=== PATIENT | female | born 1970 | race Caucasian/White ===

== ENCOUNTER 2016-09-30 21:42 | Emergency (ER) | payer OTHER ==
[~2016-09-30] VITALS: Ht 165.1 cm; Wt 85.0 kg
[~2016-09-30 21:42] MED LIST: AUGMENTIN875 MG PO; DIFLUCAN150 MG PO; DIOVAN80 MG PO; GABAPENTIN300 MG PO; METOPROLOL TART25 MG PO; NAPROSYN500 MG PO; NORCO 5/3251 TABLET PO; PERCOCET 5/31 TABLET PO; SKELAXIN800 MG PO; STOOL SOFTENER250 MG PO; VALSARTAN160 MG PO
[2016-09-30 22:53] LABS: ADD MIUA? YES; BILIRUBIN NEGATIVE; BLOOD LARGE; COLOR YELLOW ((YELLOW)); GLUCOSE (STRIP) NEGATIVE; KETONES NEGATIVE; LEUKOCYTES NEGATIVE; NITRITE NEGATIVE; PROTEIN (STRIP) NEGATIVE; SPECIFIC GRAVITY 1.013 (1.000-1.030); UROBILINOGEN 0.2 MG/DL (0.2-1.0)
[2016-09-30 23:04] LABS: ADD MEDTOX COMMENT Y; AMPHETAMINE PRESUMPTIVE POSITIVE (500 ng/mL); BARBITURATES NEGATIVE (200 ng/mL); BENZODIAZEPINES NEGATIVE (150 ng/mL); COCAINE NEGATIVE (150 ng/mL); INTERNAL CONTROLS VALID? YES; METHADONE NEGATIVE (200 ng/mL); METHAMPHETAMINE NEGATIVE (500 ng/mL); OPIATES (MORPHINE) NEGATIVE (100 ng/mL); OXYCODONE PRESUMPTIVE POSITIVE (100 ng/mL); PHENCYCLIDINE NEGATIVE (25 ng/mL); PROPOXYPHENE NEGATIVE (300 ng/mL); THC CANNABINOIDS NEGATIVE (50 ng/mL); TRICYCLIC ANTIDEPRESSANTS PRESUMPTIVE POSITIVE (300 ng/mL)
[2016-09-30 23:10] LABS: EPITHELIAL CELLS RARE; MUCUS NONE SEEN; WHITE BLOOD CELLS RARE /HPF (0-5)
[2016-09-30 23:11] LABS: BACTERIA NONE SEEN; CASTS NONE SEEN /LPF; CRYSTALS NONE SEEN; UCUL ADDED? NO
[2016-10-01] MEDS ORDERED: FLEXERIL5 MG PO (00:55)
[2016-10-01] MEDS ORDERED: MEDROL DOSEPAK4 MG PO (00:55)
[2016-10-01 01:10] VITALS: BP 189/82
== END 2016-10-01 01:14 | disposition home or self-care (01) ==
LOC: EME 21:42 → EXP 21:42
PROVIDERS: Physician Assistant
DX: M54.32 Sciatica, left side (principal); S40.011A Contusion of right shoulder, initial encounter; W01.0XXA Fall on same level from slipping, tripping and stumbling without subsequent striking against object, initial encounter
CPT/HCPCS: 73020; 73030; 81003; 84999; 99281; 99284

== ENCOUNTER 2017-01-29 16:14 | Emergency (ER) | payer OTHER ==
[~2017-01-29] VITALS: Ht 2651.8 cm; Wt 84.7 kg
[~2017-01-29 16:14] MED LIST changes: +FLEXERIL5 MG PO; +MEDROL DOSEPAK4 MG PO
[2017-01-29 16:58] LABS: EOSINOPHIL (%) 2.6 % (0-5); EOSINOPHIL COUNT 0.1 K/uL (0-0.3); HEMATOCRIT 34.2 % (36.0-46.0); IMMATURE GRANULOCYTE (%) 0.6 % (0.0-0.7); LYMPHOCYTE COUNT 1.5 K/uL (1.0-2.8); MCH 28.6 PG (29.0-34.0); MCHC 33.3 G/DL (30.0-36.0); MCV 85.9 FL (83-99); MEAN PLAT.VOLUME 8.4 uM^3 (9.5-12.4); MONOCYTE (%) 6.4 % (3-12); MONOCYTE COUNT 0.3 K/uL (0-0.8); PLATELET COUNT 276 K/uL (156-360); RBC DIS.WIDTH-CV 12.9 % (11.8-14.6); RBC DIS.WIDTH-SD 40.1 % (39-53); RED BLOOD COUNT 3.98 M/uL (3.80-5.20)
[2017-01-29 17:13] LABS: CHLORIDE 103 mEq/L (99-109); POTASSIUM 4.4 mEq/L (3.7-5.4); SODIUM 139 mEq/L (136-147)
[2017-01-29 17:15] LABS: GLUCOSE 87 mg/dL (70-99)
[2017-01-29 17:17] LABS: ANION GAP 9 MEQ/L (2-14)
[2017-01-29 17:18] LABS: SERUM ETHYL ALCOHOL < 10 mg/dL
[2017-01-29 17:19] LABS: GFR ESTIMATE (CALCULATED) > 59 mL/min/
[2017-01-29 17:20] LABS: UREA NITROGEN (BUN) 12 mg/dL (9-23)
[2017-01-29 17:24] LABS: ADD MIUA? YES; BILIRUBIN NEGATIVE; BLOOD LARGE; COLOR AMBER ((YELLOW)); GLUCOSE (STRIP) NEGATIVE; KETONES NEGATIVE; LEUKOCYTES SMALL; NITRITE POSITIVE; PROTEIN (STRIP) 100; SPECIFIC GRAVITY 1.017 (1.000-1.030); UROBILINOGEN 0.2 MG/DL (0.2-1.0)
[2017-01-29 17:50] LABS: BACTERIA 2+ /HPF; EPITHELIAL CELLS 2+ /HPF; MUCUS 1+ /LPF; RED BLOOD CELLS TNTC /HPF (0-5); UCUL ADDED? YES; WHITE BLOOD CELLS 40-50 /HPF (0-5)
[2017-01-29 17:51] LABS: AMPHETAMINE NEGATIVE (500 ng/mL); BARBITURATES NEGATIVE (200 ng/mL); BENZODIAZEPINES NEGATIVE (150 ng/mL); COCAINE NEGATIVE (150 ng/mL); INTERNAL CONTROLS VALID? YES; METHADONE NEGATIVE (200 ng/mL); METHAMPHETAMINE NEGATIVE (500 ng/mL); OPIATES (MORPHINE) NEGATIVE (100 ng/mL); OXYCODONE PRESUMPTIVE POSITIVE (100 ng/mL); PHENCYCLIDINE NEGATIVE (25 ng/mL); PROPOXYPHENE NEGATIVE (300 ng/mL); THC CANNABINOIDS NEGATIVE (50 ng/mL); TRICYCLIC ANTIDEPRESSANTS NEGATIVE (300 ng/mL)
[2017-01-29] MEDS ORDERED: BACTRIM,SEPT1 TABLET PO (18:21)
[2017-01-29 18:32] VITALS: BP 168/92
== END 2017-01-29 18:33 | disposition home or self-care (01) ==
LOC: EME → EDBD 16:14 → EME 16:14
PROVIDERS: Emergency Medicine
DX: R56.9 Unspecified convulsions (principal); N39.0 Urinary tract infection, site not specified; Z98.84 Bariatric surgery status
CPT/HCPCS: 70450; 80048; 81003; 85025; 87077; 87086; 87186; 93005; 99281; 99285; G0480